=== PATIENT | female | born 1980 ===

== ENCOUNTER 2020-09-12 07:37 | Day surgery (SDC) | payer OTHER ==
[~2020-09-12 07:37] MED LIST: Lactated Ringers 1,000 ML IV SCH; Lidocaine 1%/Sod Bicarbonate in NS 8.4% 1 ML Syringe IDERM PRN; Sodium Chloride 0.9% 10 ML Syringe FLUSH PRN
[2020-09-12] MEDS: Lidocaine 1% with EPINEPHrine 1:100,000 10 ML MDV ONE ×2 (08:13→09:11)
[2020-09-12] MEDS: Sodium Chloride 0.9% 50 ML SDV ONE ×2 (08:14→09:11)
[2020-09-12] MEDS ORDERED: Ondansetron 4 MG/2 ML SDV ONE (08:35)
[2020-09-12] MEDS ORDERED: Lidocaine 1% 4 ML ONE (08:35)
[2020-09-12] MEDS ORDERED: Lactated Ringers 1,000 ML ONE (08:35)
[2020-09-12] MEDS ORDERED: Rocuronium 50 MG/5 ML Vial ONE (08:35)
[2020-09-12] MEDS ORDERED: ceFAZolin 1 GM Vial ONE (08:35)
[2020-09-12] MEDS ORDERED: Midazolam 1 MG/ML 2 ML SDV ONE (08:36)
[2020-09-12] MEDS ORDERED: Propofol 200 MG/20 ML SDV ONE (08:36)
[2020-09-12] MEDS ORDERED: Dexamethasone 4 MG/ML 5 ML MDV ONE (08:36)
[2020-09-12] MEDS ORDERED: fentaNYL 250 MCG/5 ML SDV ONE (08:36)
[2020-09-12] MEDS ORDERED: Ketamine 500 mg/10 ML MDV ONE (09:14)
[2020-09-12] MEDS ORDERED: Ketorolac 15 MG/ML SDV ONE (09:37)
[2020-09-12] MEDS ORDERED: ClonazePAM 0.5 MG Tab PO PRN (09:46)
[2020-09-12] MEDS ORDERED: Acetaminophen/oxyCODONE 325-5 MG Tab PO PRN (09:47)
[2020-09-12] MEDS ORDERED: Ondansetron 4 MG/2 ML SDV IVPUSH PRN (09:47)
--- NOTE | 2020-09-12 09:55 | PCM.OPNOTE ---
- General Post-Op/Procedure Note Date of Surgery/Procedure: 09/12/20 Operative Procedure(s): Total vaginal hysterectomy with bilateral salpingectomy Findings: Uterus is normal size. Fallopian tubes appeared functional. Ovaries bilaterally appeared functional and of reproductive age. No significant abnormalities were noted. Specimen including uterus/cervix and bilateral fallopian tubes were sent for histologic evaluation. Pre Op Diagnosis: 1. Dysmenorrhea. 2. Menorrhagia. 3. Irregular menses Post-Op Diagnosis: Same Anesthesia Technique: General ET Tube Other Anesthesia Type: Can quarter percent with [id number] cclocal Primary Surgeon: Jae Leon Secondary Surgeon: Kristyn Sheldon Anesthesia Provider: Lalita Garsia Harness Preparer: Rui Puckett Reason Harness Preparer Was Necessary: Retraction, assistance, patient safety, quality of care. Pathology: Uterus, bilateral fallopian tubes and one specimen container. Fluid Replacement, Intraop: 1,400 Output, Urine Amount: 0 EBL in mLs: 20 Complications: None Condition: Good Free Text/Narrative:: Surgery duration: 30 minutes Procedure: The patient was placed in supine position on the operating table. General endotracheal anesthesia was accomplished. After positioning, and adequate prep and drape, the procedure was then performed. Sterile speculum was placed in the vagina and cervix was visualized. Cervix was injected with lidocaine quarter percent with epinephrine-20 mL used. A full circumference incision was made in the cervical epithelium. The bladder was pushed well back off cervix. Posterior cul-de-sac was then entered sharply without problems. Left uterosacral was crossclamped with a Enseal vessel closure system. The left uterosacral and then the right uterosacral ligament pedicles were developed using the Enseal system. The anterior cul-de-sac was then entered without problems and the uterine vasculature, cardinal ligament and broad ligament then developed using Enseal vessel closure system. The uterus was inverted at this time and upper broad ligament, fallopian tube pedicles were crossclamped with Lucrecia clamps. Specimen was totally removed. Both these pedicles were then secured with Enseal vessel closure system. Left and right fallopian tube was normal in appearance. Using Enseal vessel closure system each of the tubes was then removed and sent with the specimen. The patient was found to be hemostatically intact at this time. The posterior vaginal cuff was sutured for hemostatic reasons with a running locked suture of 0 Monocryl from the 2 o'clock position to the 10 o'clock position posteriorly. Vaginal cuff was then closed from left side right side with a running locked suture of 0 Monocryl. Hemostasis was confirmed. Patient was returned to supine position and awakened from general endotracheal anesthesia. She tolerated the procedure and left the operating room in satisfactory condition.
[2020-09-12] MEDS ORDERED: Cyanocobalamin (Vitamin B12) 1,000 MCG/ML SDV IM SCH (10:00)
--- NOTE | 2020-09-12 10:14 | PCM.PREANE ---
Preanesthetic Assessment - Procedure Proposed Procedure: Total Vaginal Hysterectomy - Anesthesia/Transfusion/Family Hx Anesthesia History: Prior Anesthesia Without Reaction Family History of Anesthesia Reaction: No Transfusion History: No Prior Transfusion(s) - Review of Systems General: No Symptoms Pulmonary: No Symptoms Cardiovascular: No Symptoms Gastrointestinal: No Symptoms Neurological: No Symptoms Other: Reports: Anxiety - Physical Assessment NPO Status Date: 09/11/20 NPO Status Time: 21:00 Vital Signs: Last Vital Signs Temp 36.4 C 09/12/20 10:01 Pulse 75 09/12/20 07:40 Resp 12 09/12/20 10:01 BP 91/54 L 09/12/20 10:01 Pulse Ox 95 09/12/20 10:01 Height: 1.6 m Weight: 50.349 kg ASA Class: 1 Mental Status: Alert & Oriented x3 Airway Class: Mallampati = 2 Dentition: Reports: Normal Dentition Thyro-Mental Finger Breadths: 2 Mouth Opening Finger Breadths: 3 ROM/Head Extension: Full Lungs: Clear to Auscultation, Normal Respiratory Effort Cardiovascular: Regular Rate, Regular Rhythm - Lab Values: Laboratory Last Values Urine HCG, Qual Negative (NEGATIVE) 09/12/20 07:36 Blood Type A POSITIVE 09/12/20 08:00 Gel Antibody Screen Negative 09/12/20 08:00 - Allergies Allergies/Adverse Reactions: Allergies Allergy/AdvReac Type Severity Reaction Status Date / Time No Known Allergies Allergy Verified 09/12/20 08:16 - Anesthesia Plan Pre-Op Medication Ordered: Anxiolytic, Other (Ondansetron ) - Acknowledgements Anesthesia Type Planned: General Anesthesia Pt an Appropriate Candidate for the Planned Anesthesia: Yes Alternatives and Risks of Anesthesia Discussed w Pt/Guardian: Yes Pt/Guardian Understands and Agrees with Anesthesia Plan: Yes PreAnesthesia Questionnaire - HOME MEDS Home Medications: Home Meds Acetaminophen/oxyCODONE [Percocet 325-5 MG] 2 tab PO Q4H PRN tablet 09/12/20 [Rx] ClonazePAM [KlonoPIN] 0.5 mg PO ASDIRECTED PRN 09/12/20 [History] ClonazePAM [KlonoPIN] 0.5 mg PO ASDIRECTED PRN tablet 09/12/20 [Rx] Cyanocobalamin (Vitamin B12) [Vitamin B12] 1,000 mcg IM ASDIRECTED sdv 09/12/20 [Rx] Ibuprofen [Motrin] 600 mg PO Q4H PRN tablet 09/12/20 [Rx] PARoxetine [Paxil] 30 mg PO DAILY tablet 09/12/20 [Rx] Spironolactone 100 mg PO DAILY 09/12/20 [History] - CURRENT (IN HOUSE) MEDS Current Meds: Current Medications Clonazepam (Clonazepam 0.5 Mg Tab) 0.5 mg PO ASDIRECTED PRN PRN Reason: Anxiety Lactated Ringer's (Ringers, Lactated) 1,000 mls @ 125 mls/hr IV ASDIRECTED DEANNE Stop: 09/12/20 23:00 Last Admin: 09/12/20 08:00 Dose: 125 mls/hr Documented by: Ibuprofen (Ibuprofen 600 Mg Tab) 600 mg PO Q4H PRN PRN Reason: Mild pain or fever Lidocaine/Sodium Bicarbonate (Lidocaine 1%/Sod Bicarbonate In Ns 8.4% 1 Ml Syringe) 0.25 ml IDERM ONETIME PRN PRN Reason: Prior to IV Start Stop: 09/12/20 18:00 Ondansetron HCl (Ondansetron 4 Mg/2 Ml Sdv) 4 mg IVPUSH Q4H PRN PRN Reason: Nausea Oxycodone/Acetaminophen (Acetaminophen/Oxycodone 325-5 Mg Tab) 2 tab PO Q4H PRN PRN Reason: Pain Paroxetine HCl (Paroxetine 10 Mg Tab) 30 mg PO DAILY [facility] Sodium Chloride (Sodium Chloride 0.9% 10 Ml Syringe) 10 ml FLUSH ASDIRECTED PRN PRN Reason: Keep Vein Open Stop: 09/12/20 18:00 Spironolactone (Spironolactone 100 Mg Tab) 100 mg PO DAILY [facility] Discontinued Medications Cefazolin Sodium (Cefazolin 1 Gm Vial) Confirm Administered Dose 2 gm .ROUTE .[facility]K-MED ONE Stop: 09/12/20 08:36 Cyanocobalamin (Cyanocobalamin (Vitamin B12) 1,000 Mcg/Ml Sdv) 1,000 mcg IM A SDIRECTED [facility] Dexamethasone (Dexamethasone 4 Mg/Ml 5 Ml Mdv) Confirm Administered Dose 20 mg .ROUTE .STK-MED ONE Stop: 09/12/20 08:37 Fentanyl (Fentanyl 250 Mcg/5 Ml Sdv) Confirm Administered Dose 250 mcg .ROUTE .[facility]-MED ONE Stop: 09/12/20 08:37 Glycopyrrolate (Glycopyrrolate 0.2 Mg/Ml 2 Ml Syringe) Confirm Administered Dose 0.4 mg .ROUTE .[facility] ONE Stop: 09/12/20 09:38 Lidocaine HCl (Xylocaine-Mpf 1%) Confirm Administered Dose 4 mls @ as directed .ROUTE .[facility] ONE Stop: 09/12/20 08:36 Lactated Ringer's (Ringers, Lactated) Confirm Administered Dose 1,000 mls @ as directed .ROUTE .[facility] ONE Stop: 09/12/20 08:36 Ketamine HCl (Ketamine 500 Mg/10 Ml Mdv) Confirm Administered Dose 500 mg .[address] .[facility] ONE Stop: 09/12/20 09:15 Ketorolac Tromethamine (Ketorolac 15 Mg/Ml Sdv) Confirm Administered Dose 15 mg .ROUTE .[facility] ONE Stop: 09/12/20 09:38 Lidocaine/Epinephrine (Lidocaine 1% With Epinephrine 1:100,000 10 Ml Mdv) Confirm Administered Dose 10 ml .ROUTE .[facility] ONE Stop: 09/12/20 07:44 Last Admin: 09/12/20 08:13 Dose: 10 ml Documented by: Midazolam HCl (Midazolam 1 Mg/Ml 2 Ml Sdv) Confirm Administered Dose 2 mg .ROUTE .[facility] ONE Stop: 09/12/20 08:37 Neostigmine Methylsulfate (Neostigmine Methylsulfate 5 Mg/5 Ml Syringe) Confirm Administered Dose 5 mg .ROUTE .[facility] ONE Stop: 09/12/20 09:38 Ondansetron HCl (Ondansetron 4 Mg/2 Ml Sdv) Confirm Administered Dose 4 mg .ROUTE .[facility] ONE Stop: 09/12/20 08:36 Propofol (Propofol 200 Mg/20 Ml Sdv) Confirm Administered Dose 400 mg .ROUTE .[facility] ONE Stop: 09/12/20 08:37 Rocuronium [place] (Rocuronium 50 Mg/5 Ml Vial) Confirm Administered Dose 50 mg .ROUTE .ST-MED ONE Stop: 09/12/20 08:36 Sodium Chloride (Sodium Chloride 0.9% 50 Ml Sdv) Confirm Administered Dose 50 ml .ROUTE .[facility] ONE Stop: 09/12/20 07:44 Last Admin: 09/12/20 08:14 Dose: 50 ml Documented by:
--- NOTE | 2020-09-12 10:15 | PCM.POSTAN ---
POST ANESTHESIA ASSESSMENT - MENTAL STATUS Mental Status: Other (Drowsy) - VITAL SIGNS Vital Signs: Last Vital Signs Temp 36.4 C 09/12/20 10:01 Pulse 75 09/12/20 07:40 Resp 12 09/12/20 10:01 BP 91/54 L 09/12/20 10:01 Pulse Ox 95 09/12/20 10:01 - RESPIRATORY Respiratory Status: Respiratory Rate WNL, Airway Patent, O2 Saturation Stable, Supplemental Oxygen - CARDIOVASCULAR CV Status: Pulse Rate WNL, Blood Pressure Stable - GASTROINTESTINAL GI Status: No Symptoms - PAIN Pain Score: 0 - POST OP HYDRATION Hydration Status: Adequate & Stable
[2020-09-12] MEDS ORDERED: Acetaminophen/oxyCODONE 325-5 MG Tab PO ONE (11:08)
--- NOTE | 2020-09-12 12:25 | PCM48HPAN ---
Post Anesthesia Note - EVALUATION WITHIN 48HRS OF ANESTHETIC Vital Signs in Normal Range: Yes Patient Participated in Evaluation: Yes Respiratory Function Stable: Yes Airway Patent: Yes Cardiovascular Function Stable: Yes Hydration Status Stable: Yes Pain Control Satisfactory: Yes Nausea and Vomiting Control Satisfactory: Yes Mental Status Recovered: Yes Vital Signs: Last Vital Signs Temp 36.4 C 09/12/20 11:30 Pulse 65 09/12/20 11:30 Resp 16 09/12/20 11:30 BP 100/61 09/12/20 11:30 Pulse Ox 96 09/12/20 11:30
[2020-09-12] MEDS ORDERED: Ibuprofen 600 MG Tab PO PRN (15:30)
[2020-09-13] MEDS ORDERED: Spironolactone 100 MG Tab PO SCH (09:00)
== END 2020-09-12 12:34 | disposition home or self-care (01) ==
LOC: JD.SDS 07:37
PROVIDERS: ATTEND Obstetrics & Gynecology
DX: D25.1 Intramural leiomyoma of uterus (principal); N83.8 Other noninflammatory disorders of ovary, fallopian tube and broad ligament; N92.6 Irregular menstruation, unspecified; N85.8 Other specified noninflammatory disorders of uterus; Z87.891 Personal history of nicotine dependence; Z98.890 Other specified postprocedural states; Z79.899 Other long term (current) drug therapy
CPT/HCPCS: 36415; 58262; 81025; 86850; 86900; 86901; A9270; J0690; J1100; J1885; J2250; J2405; J2704; J2710; J3010; J7120; 00944